=== PATIENT | female | born 1985 | race Caucasian/White ===

== ENCOUNTER 2017-04-09 00:31 | Emergency (ER) | payer OTHER ==
[~2017-04-09] VITALS: Ht 154.9 cm; Wt 123.3 kg
[~2017-04-09 00:31] MED LIST: ATIVAN2 MG PO; CIPRO500 MG PO; NAPROSYN500 MG PO; PAXIL10 MG PO; PERCOCET 5/31 TABLET PO; PROAIR HFA8.5 GM IH; PROZAC20 MG PO; SINGULAIR10 MG PO; SPRINTEC1 EACH; SPRINTEC1 EACH PO; ZOFRAN4 MG PO
[2017-04-09] MEDS ORDERED: ULTRAM50 MG PO (01:15)
[2017-04-09] MEDS ORDERED: MEDROL DOSEPAK4 MG PO (01:15)
[2017-04-09 01:29] VITALS: BP 136/74
== END 2017-04-09 01:33 | disposition home or self-care (01) ==
LOC: EME 00:31
PROC: 2W3CX1Z Immobilization of Right Lower Arm using Splint (ICD-10-PCS; principal; 2017-04-09)
DX: M77.9 Enthesopathy, unspecified (principal); F17.200 Nicotine dependence, unspecified, uncomplicated
CPT/HCPCS: 73110; 99281; 99284; J7512

== ENCOUNTER 2017-06-10 21:57 | Emergency (ER) | payer OTHER ==
[~2017-06-10] VITALS: Ht 154.9 cm; Wt 120.3 kg
[~2017-06-10 21:57] MED LIST changes: +MEDROL DOSEPAK4 MG PO; +ULTRAM50 MG PO
[2017-06-10] MEDS ORDERED: CLEOCIN300 MG PO (22:30)
[2017-06-10 22:55] VITALS: BP 145/87
== END 2017-06-10 22:56 | disposition home or self-care (01) ==
LOC: EME 21:57
DX: R59.0 Localized enlarged lymph nodes (principal); J45.909 Unspecified asthma, uncomplicated; F32.9 Major depressive disorder, single episode, unspecified; F17.200 Nicotine dependence, unspecified, uncomplicated
CPT/HCPCS: 99281; 99283

== ENCOUNTER 2017-08-30 20:38 | Emergency (ER) | payer OTHER ==
[~2017-08-30] VITALS: Ht 154.9 cm; Wt 117.9 kg
[~2017-08-30 20:38] MED LIST changes: +CLEOCIN300 MG PO
[2017-08-30 23:28] LABS: APPEARANCE SL.HAZY ((CLEAR)); BILIRUBIN NEGATIVE; BLOOD NEGATIVE; COLOR YELLOW ((YELLOW)); GLUCOSE (STRIP) NEGATIVE; KETONES NEGATIVE; LEUKOCYTES NEGATIVE; NITRITE NEGATIVE; PROTEIN (STRIP) NEGATIVE; SPECIFIC GRAVITY 1.023 (1.000-1.030)
[2017-08-30 23:36] LABS: BACTERIA NONE SEEN /HPF; EPITHELIAL CELLS 2+ /HPF; HYALINE CASTS 0-5 /LPF; MUCUS 1+ /LPF; RED BLOOD CELLS 0-5 /HPF (0-5); WHITE BLOOD CELLS 0-5 /HPF (0-5)
[2017-08-30] MEDS ORDERED: NAPROSYN500 MG PO (23:58)
[2017-08-30] MEDS ORDERED: FLEXERIL10 MG PO (23:58)
[2017-08-31 01:15] VITALS: BP 139/89
== END 2017-08-31 01:17 | disposition home or self-care (01) ==
LOC: EXP 20:38 → EME 20:38 → EXP 08-31 01:17
PROVIDERS: Physician Assistant
DX: M54.5 Low back pain (principal); Z91.040 Latex allergy status; Z88.5 Allergy status to narcotic agent; Z88.1 Allergy status to other antibiotic agents; Z88.8 Allergy status to other drugs, medicaments and biological substances
CPT/HCPCS: 81003; 84702; 99281; 99284